=== PATIENT | female | born 1985 | race Caucasian/White ===

== ENCOUNTER 2024-07-03 09:05 | Outpatient (RCR) | payer MEDICAID, SELFPAY | END 2024-07-24 23:59 | disposition home or self-care (01) | LOC: SCTC 09:05 | PROVIDERS: PCP Student in an Organized Health Care Education/Training Program; Referring Provider Student in an Organized Health Care Education/Training Program; Visit Provider Nurse Practitioner Family | DX: D50.9 Iron deficiency anemia, unspecified (principal); N92.0 Excessive and frequent menstruation with regular cycle; E03.9 Hypothyroidism, unspecified; G82.20 Paraplegia, unspecified | CPT/HCPCS: 99212; G0463 ==

== ENCOUNTER 2024-09-20 08:33 | Outpatient (RCR) | payer MEDICAID, SELFPAY | END 2024-09-21 23:59 | disposition home or self-care (01) | LOC: SCTC 08:33 | PROVIDERS: PCP Student in an Organized Health Care Education/Training Program; Referring Provider Student in an Organized Health Care Education/Training Program; Visit Provider Nurse Practitioner Family | DX: D50.9 Iron deficiency anemia, unspecified (principal); N92.0 Excessive and frequent menstruation with regular cycle | CPT/HCPCS: 96365; 99212; J1756; J7050; G0463 ==

== ENCOUNTER 2024-10-18 12:59 | Outpatient (RCR) | payer MEDICAID, SELFPAY ==
[2024-10-04 10:02] LABS: Basophils % (Auto) 0 % (0-2.5); Eosinophils # (Auto) 0.1 Thou/mm3 (0.0-0.5); Eosinophils % (Auto) 1 % (0-10); Hematocrit 31.4 % (36.0-46.0); Hemoglobin 10.2 g/dL (12.0-16.0); Immature Granulocytes % (Auto) 1 % (0-0); Immature Granulocytes Auto 0.03 Thou/mm3 (0.00-0.00); Lymphocytes # (Auto) 2.9 Thou/mm3 (1.0-4.8); Lymphocytes % (Auto) 45 % (10-50); Mean Corpuscular HGB Conc 32.5 g/dl (31.0-37.0); Mean Corpuscular Hemoglobin 27.9 pg (25.0-35.0); Mean Corpuscular Volume 86 fL (80-100); Monocytes # (Auto) 0.4 Thou/mm3 (0.0-0.8); Monocytes % (Auto) 6 % (0-12); Neutrophils % (Auto) 47 % (37-80); Nucleated Red Blood Cell % 0 /100 WBC (0); Platelet Count 434 Thou/mm3 (140-440); RDW Standard Deviation 42.5 fL (36.4-46.3); Red Blood Count 3.66 Miln/mm3 (4.00-5.20); White Blood Count 6.4 Thou/mm3 (3.6-11.0)
[2024-10-04 15:35] LABS: Ferritin 96 ng/mL (7.3-270.7); Iron 39 mcg/dL (50-170); Percent Iron Saturation 10 % (20-55); Total Iron Binding Capacity 385 mcg/dL (250-425); Unsaturated Iron Binding 346 (225-295)
[2024-10-04 15:54] LABS: Folate > 24.00 ng/mL (>5.38); Vitamin B12 575 pg/mL (211-911)
== END 2024-10-22 23:59 | disposition home or self-care (01) ==
LOC: SCTC 12:59
PROVIDERS: PCP Student in an Organized Health Care Education/Training Program; Referring Provider Student in an Organized Health Care Education/Training Program; Visit Provider Nurse Practitioner Family
DX: D50.9 Iron deficiency anemia, unspecified (principal); N92.0 Excessive and frequent menstruation with regular cycle
CPT/HCPCS: 82607; 82728; 82746; 83540; 83550; 85025; 96365; A4216; J1756; J7040; J7050

== ENCOUNTER 2024-11-15 12:54 | Outpatient (RCR) | payer MEDICAID, SELFPAY | END 2024-11-21 23:59 | disposition home or self-care (01) | LOC: SCTC 12:54 | PROVIDERS: PCP Student in an Organized Health Care Education/Training Program; Referring Provider Student in an Organized Health Care Education/Training Program; Visit Provider Nurse Practitioner Family | DX: D50.9 Iron deficiency anemia, unspecified (principal); N92.0 Excessive and frequent menstruation with regular cycle | CPT/HCPCS: 96365; J1756; J7050 ==

== ENCOUNTER 2024-12-04 13:11 | Outpatient (RCR) | payer MEDICAID, SELFPAY | END 2024-12-22 23:59 | disposition home or self-care (01) | LOC: SCTC 13:11 | PROVIDERS: PCP Student in an Organized Health Care Education/Training Program; Referring Provider Student in an Organized Health Care Education/Training Program; Visit Provider Nurse Practitioner Family | DX: D50.9 Iron deficiency anemia, unspecified (principal) | CPT/HCPCS: 96365; A4216; J1756; J7040; J7050 ==

== ENCOUNTER 2025-01-16 14:57 | Outpatient (RCR) | payer MEDICAID, SELFPAY | END 2025-01-21 23:59 | disposition home or self-care (01) | LOC: SCTC 14:57 | PROVIDERS: PCP Student in an Organized Health Care Education/Training Program; Referring Provider Student in an Organized Health Care Education/Training Program; Visit Provider Nurse Practitioner Family | DX: D50.9 Iron deficiency anemia, unspecified (principal); N92.0 Excessive and frequent menstruation with regular cycle; G82.20 Paraplegia, unspecified; Z99.3 Dependence on wheelchair; E03.9 Hypothyroidism, unspecified | CPT/HCPCS: 99212; G0463 ==

== ENCOUNTER 2025-03-20 10:57 | Outpatient (RCR) | payer MEDICAID, SELFPAY | END 2025-03-24 23:59 | disposition home or self-care (01) | LOC: SCTC 10:57 | PROVIDERS: PCP Student in an Organized Health Care Education/Training Program; Referring Provider Student in an Organized Health Care Education/Training Program; Visit Provider Internal Medicine Hematology & Oncology | DX: D50.9 Iron deficiency anemia, unspecified (principal); N92.0 Excessive and frequent menstruation with regular cycle; R12 Heartburn | CPT/HCPCS: 99212; G0463 ==

== ENCOUNTER 2025-04-18 13:01 | Outpatient (RCR) | payer MEDICAID, SELFPAY | END 2025-04-23 23:59 | disposition home or self-care (01) | LOC: SCTC 13:01 | PROVIDERS: PCP Student in an Organized Health Care Education/Training Program; Referring Provider Student in an Organized Health Care Education/Training Program; Visit Provider Internal Medicine Hematology & Oncology | DX: D50.9 Iron deficiency anemia, unspecified (principal); N92.0 Excessive and frequent menstruation with regular cycle | CPT/HCPCS: 96365; A4216; J1756; J3490; J7040 ==